=== PATIENT | female | born 1970 | race Caucasian/White ===

== ENCOUNTER 2021-12-10 15:49 | Inpatient (IN) | payer BC, SELFPAY ==
--- NOTE | 2021-12-10 16:15 | PC.NURSE ---
Patient arrived on unit at 1610 accompanied by her , in w/c. Able to transfer from w/ to bed with 1 assist gaitbelt. Patient c/o severe pain during transfer and c/o nausea r/t pain. Patient transferred from [place] [facility] for therapy. Patient orientated to room and call light and voiced understanding.
[2021-12-10 17:01] VITALS: BP 93/53; PULSE 76; RESP 16; TEMP 36.4; O2SAT 98; BMI 40.0
[2021-12-10] MEDS: methocarbamoL 500 MG TABLET PO ×2 (17:53→20:43)
[2021-12-10] MEDS: oxyCODONE/ACETAMINOPHEN (*CRX) 10-325 MG TABLET 1 TAB PO (17:54)
--- NOTE | 2021-12-10 18:23 | PC.NURSE ---
Patient refused midodrine and colace at 1700 med pass, stating that she has had loose stools and that the midodrine upsets her stomach. [facility] educated patient of possibility of severely low blood pressure without the midodrine and patient continued to refuse.
[2021-12-10] MEDS: GABAPENTIN 400 MG CAPSULE 1200 MG PO (20:42)
--- NOTE | 2021-12-10 21:01 | PC.NURSE ---
2044 Bebeto, Hospitalist, notified that patient was requesting an increase in her pain medication. Hospitalist stated that [place] specialist adjusted her medications before discharge and that the patient was not able to take more pain medication due to low blood pressure.
--- NOTE | 2021-12-10 21:03 | PC.NURSE ---
Nurse took patient bedtime meds, patient refused trazadone stating that she is freaked out by sleeping pills and doesn't want to take it and not wake up again. Patient asked what pain med schedule is and nurse informed her of the orders, patient requests that [employer] be called to request more pain meds. Charge nurse called [employer] and she declines to order more pain meds. Nurse informed patient of this and explained that this is what was arranged in [place], patient states that we should arrange her transfer home because if she can't have more pain meds she might as well be miserable at home. She states that she had major surgery and that this is ridiculous.Nurse informed patient that if she leaves it would be AMA and that we don't arrange transportation for this. Patient called her to come to get her and states that she is not signing anything and here will be here to pick her up in an hour.
--- NOTE | 2021-12-10 21:05 | PC.NURSE ---
Bebeto, HEALTH PLAN MANAGER/Hospitalist, notified that patient called her and he was on his way here to pick her up. Patient states that she would refuse to sign AMA paperwork.
--- NOTE | 2021-12-10 21:21 | PC.NURSE ---
Patient awaiting husbands arrival, discussed risks involved in leaving, patient voiced understanding.
--- NOTE | 2021-12-10 21:56 | PM.EVENT ---
Event Note Event Note Event Note: received report from nursing staff,, patient demanding more pain medication. Patient was not accepted to the [facility] until her pain was controlled . Patient was to continue pain regiment from previous hospital. Did not changed medication patient has a hx of hypotension possible due to controlled substance. Patient informed nursing staff she was leaving and would not sign ama paperwork.
--- NOTE | 2021-12-10 22:02 | PC.NURSE ---
Patient left hospital per private vehicle, patient refused to sign AMA paper.
--- NOTE | 2021-12-14 09:37 | PC.NURSE ---
Unable to contact for discharge call back.
== END 2021-12-10 22:00 | disposition left against medical advice (07) | DRG 561 ==
LOC: CHS2ND 12-11 11:34
PROVIDERS: Admitting Provider Internal Medicine; Visit Provider Nurse Practitioner
DX: Z47.89 Encounter for other orthopedic aftercare (principal); Z98.1 Arthrodesis status
CPT/HCPCS: 97162; A9270